=== PATIENT | male | born 1970 | race Caucasian/White ===

== ENCOUNTER → 2024-06-29 08:27 | Outpatient (REF) | payer OTHER, SELFPAY | LOC: RCS 08:27 | PROVIDERS: ATTENDING PHYSICIAN Internal Medicine Cardiovascular Disease; FAMILY PHYSICIAN Family Medicine | DX: I47.10 Supraventricular tachycardia, unspecified (principal) | CPT/HCPCS: 93306 ==

== ENCOUNTER 2024-07-20 07:20 | Day surgery (SDC) | payer OTHER, SELFPAY ==
[2024-07-20] VITALS (10 sets, daily range): BP systolic 125–167; BP diastolic 86–108; BMI 26.5
[2024-07-20] MEDS: LOW STRENGTH ASPIRIN 324 MG PO (08:16)
[2024-07-20] MEDS: NSS 274 ML IV (08:17)
--- NOTE | 2024-07-20 10:56 | ITS.CL.CATH ---
[employer] - Catheterization
Cardiac Catheterization
Procedure Report:
LEFT HEART CATHETERIZATION
Date of Procedure: July 20, 2024
Referring: Dr. Jesús Soler
PROCEDURES:
1. Left heart catheterization with coronary and single-plane left ventriculography
INDICATION: Nonsustained ventricular tachycardia versus SVT with aberrancy during exercise stress study
ACCESS: Right radial artery, 6 [place] sheath
HEMODYNAMICS : (mmHg)
AO (s/d) : 92/57, 72
LV (s/d) : 90/5
LVEDP : 15
CORONARY FINDINGS
DOMINANCE: Right
LEFT MAIN: Normal
LEFT ANTERIOR DESCENDING: The LAD arises normally from the left main and runs in the anterior interventricular groove. There is a myocardial bridge in the mid LAD beyond the only sizable diagonal branch. The LAD and diagonal branches have only
minor luminal irregularities but no focal obstructive stenosis
RAMUS: Medium caliber widely patent
CIRCUMFLEX: The circumflex is a medium caliber nondominant vessel giving rise to a single sizable obtuse marginal branch which is widely patent
RIGHT CORONARY ARTERY: The right coronary artery is a large-caliber dominant vessel that is widely patent over its course
VENTRICULOGRAPHY: Left ventriculography is performed in BLAIR projection. The digital single-plane left ventricular ejection fraction is estimated at 60%. No regional wall motion abnormalities are noted
RADIATION SUMMARY: Fluoro Time (min): 2.3, Dose (mGy): 231, DAP (Gy.cm2) : 20.1
Closure Device: TR band
CONCLUSIONS
1. 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
2. Preserved left ventricular systolic function
RECOMMENDATIONS
1. Medical therapy and risk modification
2. Awaiting 5-day CAM monitor and MRI
Copy to: Dr. Jesús Soler
== END 2024-07-20 13:30 | disposition home or self-care (01) ==
LOC: CATH 07:20
PROVIDERS: ATTENDING PHYSICIAN Internal Medicine Interventional Cardiology; FAMILY PHYSICIAN Family Medicine
DX: I25.10 Atherosclerotic heart disease of native coronary artery without angina pectoris (principal); I49.3 Ventricular premature depolarization; Q24.5 Malformation of coronary vessels; I45.10 Unspecified right bundle-branch block; I10 Essential (primary) hypertension
CPT/HCPCS: 93458; C1894; Q9967

== ENCOUNTER → 2024-09-21 08:39 | Outpatient (REF) | payer OTHER, SELFPAY | LOC: PAVMRI 08:39 | PROVIDERS: ATTENDING PHYSICIAN Internal Medicine Cardiovascular Disease; FAMILY PHYSICIAN Family Medicine | DX: I10 Essential (primary) hypertension (principal); I47.20 Ventricular tachycardia, unspecified | CPT/HCPCS: 75561; 75565; A9585 ==